=== PATIENT | female | born 1980 | race Two or more races ===

== ENCOUNTER 2017-11-21 13:26 | Emergency (ER) | payer MEDICAID ==
[~2017-11-21] VITALS: Ht 172.7 cm; Wt 110.0 kg
[2017-11-21 13:49] LABS: CULTURE INDICATED? YES; MICROSCOPIC INDICATED
[2017-11-21] MEDS ORDERED: ALLERGY MED (14:31)
[2017-11-21 15:09] VITALS: BP 122/69
[2017-11-21 15:54] LABS: CLUE CELLS NONE SEEN (NONE SEEN); WET PREP WBCS MANY (FEW)
[2017-11-21] MEDS ORDERED: metroNIDAZOLE 500 MG TABLET PO ONE (16:30)
[2017-11-21] MEDS ORDERED: metroNIDAZOLE 500 MG TABLET ONE (16:50)
== END 2017-11-21 16:58 | disposition home or self-care (01) ==
LOC: ED 16:49
DX: S29.012A Strain of muscle and tendon of back wall of thorax, initial encounter (principal); A59.01 Trichomonal vulvovaginitis; X58.XXXA Exposure to other specified factors, initial encounter; Y93.89 Activity, other specified; Y92.89 Other specified places as the place of occurrence of the external cause; Y99.8 Other external cause status
CPT/HCPCS: 81001; 87077; 87086; 87147; 87186; 87210; 87491; 87591; 87808; 99284